=== PATIENT | male | born 1955 | race Two or more races ===

== ENCOUNTER 2018-01-07 23:03 | Emergency (ER) | payer SELFPAY ==
[~2018-01-07] VITALS: Ht 167.6 cm; Wt 72.0 kg
[2018-01-07 23:56] LABS: HEMATOCRIT. 47.6 % (42.0-52.0); MEAN CORPUSCULAR HEMOGLOBIN 33.2 pg (28.0-32.0); MEAN CORPUSCULAR VOLUME 92.5 fL (80.0-94.0); MEAN PLATELET VOLUME 7.1 fl (7.4-10.4); PLATELET 427 x1000/uL (130-400); RED BLOOD CELL COUNT 5.14 mill/uL (4.7-6.1); RED CELL DISTRIBUTION WIDTH 13.2 % (11.6-14.6)
[2018-01-08 00:03] LABS: CHLORIDE 111 mEq/L (98-107)
[2018-01-08 00:07] LABS: ETHANOL BLOOD 285 mg/dL
[2018-01-08 01:36] LABS: ATYPICAL LYMPHOCYTES 2; PLATELET ESTIMATE SLIGHTLY INCREASED
[2018-01-08 02:56] VITALS: BP 135/85
== END 2018-01-08 03:01 | disposition home or self-care (01) ==
LOC: ER 23:03
DX: F10.129 Alcohol abuse with intoxication, unspecified (principal); Y90.8 Blood alcohol level of 240 mg/100 ml or more; R03.0 Elevated blood-pressure reading, without diagnosis of hypertension
CPT/HCPCS: 36415; 80053; 82962; 85025; 99284; G0482